=== PATIENT | female | born 1975 | race Caucasian/White ===

== ENCOUNTER 2019-10-13 13:03 | Emergency (ER) | payer BC, SELFPAY | END 2019-10-13 14:05 | disposition home or self-care (01) | LOC: ERS 13:03 | DX: S39.012A Strain of muscle, fascia and tendon of lower back, initial encounter (principal); H00.015 Hordeolum externum left lower eyelid; F17.210 Nicotine dependence, cigarettes, uncomplicated; J44.9 Chronic obstructive pulmonary disease, unspecified; E78.5 Hyperlipidemia, unspecified; X50.1XXA Overexertion from prolonged static or awkward postures, initial encounter | CPT/HCPCS: 99283 ==